=== PATIENT | female | born 1975 | race Caucasian/White ===

== ENCOUNTER 2020-11-11 11:29 | Emergency (ER) | payer BC ==
--- NOTE | 2020-11-11 13:10 | ERPHSYRPT ---
- History of Present Illness Time Seen by Provider: 11/11/20 12:10 Historian: patient Exam Limitations: no limitations Patient Subjective Stated Complaint: Pt states "This started last night [facility] tests and said I had a cyst on my ovary and to followup with dr. Schilling my ob. I called them and they said if I am in that much pain I should just go to the ED." Triage Nursing Assessment: Pt presented alert and oriented X 3, skin wpd pt ambulates with a hunched over shuffling gait. PT sittign with her knees pulled up to her chest. Pt tearful. Pt in no apparent respiratory distress. Physician History: Patient is a 45-year-old female presents to our emergency department for evaluation of right lower quadrant pain. Patient pain started yesterday evening. Patient followed up at an outside hospital. Patient had a complete work-up including CAT scan. Patient was advised that she had ovarian cyst. Patient was discharged home and advised to follow-up with her HUMAN RESOURCES BENEFITS SPECIALIST physician. Patient's pain is progressively worsening. Patient called her HUMAN RESOURCES BENEFITS SPECIALIST's office who advised her to come to our ED. Pain described as an ache that is well localized. No radiation. Pain worse with palpation at McBurney's point. Pain improved with rest. No associated diarrhea. No nausea or vomiting. No diaphoresis. No chest pain or shortness of breath. Patient is otherwise generally healthy. She voices no other complaints or concerns at this time. Timing/Duration: yesterday Activities at Onset: none Quality: aching Abdominal Pain Onset Location: RLQ Pain Radiation: no radiation Severity of Pain-Max: moderate Severity of Pain-Current: mild Modifying Factors: Improves With: movement Associated Symptoms: denies symptoms, No chest pain, No diarrhea, No nausea, No rash, No syncope, No vomiting Previous symptoms: no prior history Allergies/Adverse Reactions: acetaminophen [From Percocet] Allergy (Verified 11/11/20 12:11) itchy oxycodone [From Percocet] Allergy (Verified 11/11/20 12:11) itchy Home Medications: Atenolol 50 mg PO DAILY 11/11/20 [History] Hx Tetanus, Diphtheria Vaccination/Date Given: No Hx Influenza Vaccination/Date Given: Yes Hx Pneumococcal Vaccination/Date Given: No Immunizations Up to Date: Yes Travel Risk - International Travel Have you traveled outside of the country in past 3 weeks: No - Coronavirus Screening Are you exhibiting any of the following symptoms?: No Close contact with a COVID-19 positive Pt in past 14-21 Days: No - Vaccine Status Have you recieved a Covid-19 vaccination: No - Review of Systems Constitutional: No Symptoms, No Fever, No Chills Eyes: No Symptoms Ears, Nose, & Throat: No Symptoms Respiratory: No Symptoms, No Cough, No Dyspnea Cardiac: No Symptoms, No Chest Pain, No Edema, No Syncope Abdominal/Gastrointestinal: No Symptoms, No Abdominal Pain, No Nausea, No Vomiting, No Diarrhea Genitourinary Symptoms: No Symptoms, No Dysuria Musculoskeletal: No Symptoms, No Back Pain, No Neck Pain Skin: No Symptoms, No Rash Neurological: No Symptoms, No Dizziness, No Focal Weakness, No Sensory Changes Psychological: No Symptoms Endocrine: No Symptoms Hematologic/Lymphatic: No Symptoms Immunological/Allergic: No Symptoms All Other Systems: Reviewed and Negative - Past Medical History Pertinent Past Medical History: Yes Neurological History: Migraines Cardiac History: Hypertension, Other Respiratory History: No Pertinent History Endocrine Medical History: No Pertinent History Musculoskeletal History: Other Other Medical History: Pacemaker - Past Surgical History Past Surgical History: Yes Other Surgical History: hysterectomy. right shoulder surgery - Social History Smoking Status: Never smoker Exposure to second hand smoke: No Drug Use: none Patient Lives Alone: No - Female History Hx Last Menstrual Period: hysterectomy Hx Now: No - Nursing Vital Signs Nursing Vital Signs: Initial Vital Signs Temperature 97.2 F 11/11/20 12:04 Pulse Rate 62 11/11/20 12:04 Respiratory Rate 22 11/11/20 12:04 Blood Pressure 101/66 11/11/20 12:04 O2 Sat by Pulse Oximetry 100 11/11/20 12:04 Pain Scale Pain Intensity 9 - Physical Exam General Appearance: no apparent distress, alert Eye Exam: PERRL/EOMI, eyes nml inspection Ears, Nose, Throat Exam: normal ENT inspection, pharynx normal, moist mucous m embranes Neck Exam: normal inspection, non-tender, supple, full range of motion Respiratory Exam: normal breath sounds, lungs clear, No respiratory distress Cardiovascular Exam: regular rate/rhythm, normal heart sounds Gastrointestinal/Abdomen Exam: soft, No tenderness, No mass Back Exam: normal inspection, normal range of motion, No CVA tenderness, No vertebral tenderness Extremity Exam: normal inspection, normal range of motion, pelvis stable Neurologic Exam: alert, oriented x 3, cooperative, normal mood/affect, nml c erebellar function, sensation nml, No motor deficits Skin Exam: normal color, warm, dry Lymphatic Exam: adenopathy SpO2 Interpretation: normal SpO2: 100 O2 Delivery: Room Air - Course Nursing assessment & vital signs reviewed: Yes - CT Exams Abdomen/Pelvis CT Interpretation: Tele-radiologist Report (Appendix not visualized. Pelvic cyst visualized.) - Radiology Ultrasound Exam Pelvis Ultrasound: discussed w/radiologist (No torsion per log loader.) Ordered Tests: Medication Summary Discontinued Medications Generic Name Dose Route Start Last Admin Trade Name Freq PRN Reason Stop Dose Admin Fentanyl Citrate 25 mcg 11/11/20 13:14 11/11/20 14:02 Sublimaze 100 Mcg/2 Ml IV 11/11/20 13:15 25 mcg STAT ONE Administration Fentanyl Citrate Confirm 11/11/20 13:50 Sublimaze 100 Mcg/2 Ml Administered 11/11/20 13:51 Dose 100 mcg .ROUTE .STK-MED ONE Fentanyl Citrate Confirm 11/11/20 14:00 Sublimaze 100 Mcg/2 Ml Administered 11/11/20 14:01 Dose 100 mcg .ROUTE .STK-MED ONE Fentanyl Citrate 25 mcg 11/11/20 15:55 11/11/20 15:57 Sublimaze 100 Mcg/2 Ml IV 11/11/20 15:56 25 mcg STAT ONE Administration Fentanyl Citrate Confirm 11/11/20 15:56 Sublimaze 100 Mcg/2 Ml Administered 11/11/20 15:57 Dose 100 mcg .ROUTE .STK-MED ONE Sodium Chloride 1,000 mls @ 100 mls/hr 11/11/20 13:15 11/11/20 14:01 Sodium Chloride 0.9% 1000 Ml IV 12/11/20 13:14 100 mls/hr .Q10H DILCIA Administration Sodium Chloride Confirm 11/11/20 13:50 Sodium Chloride 0.9% 1000 Ml Administered 11/11/20 13:51 Dose 1,000 mls @ ud .ROUTE .STK-MED ONE Sodium Chloride Confirm 11/11/20 14:00 Sodium Chloride 0.9% 1000 Ml Administered 11/11/20 14:01 Dose 1,000 mls @ ud .ROUTE .STK-MED ONE Ondansetron HCl 4 mg 11/11/20 13:15 11/11/20 14:02 Zofran 4 Mg/2 Ml Vial IV 11/11/20 13:16 4 mg STAT ONE Administration Ondansetron HCl Confirm 11/11/20 13:49 Zofran 4 Mg/2 Ml Vial Administered 11/11/20 13:50 Dose 4 mg .ROUTE .STK-MED ONE Ondansetron HCl Confirm 11/11/20 13:59 Zofran 4 Mg/2 Ml Vial Administered 11/11/20 14:00 Dose 4 mg .ROUTE .STK-MED ONE Lab/Rad Data: Laboratory Result Diagrams 11/11/20 13:30 11/11/20 13:30 Laboratory Results 11/11/20 11/11/20 11/11/20 Range/Units 13:30 13:30 13:30 WBC 8.9 (4.0-10.5) K/mm3 RBC 4.12 (4.1-5.4) M/mm3 Hgb 12.7 (12.0-16.0) gm/dl Hct 38.2 (35-47) % MCV 92.7 (78-100) fl MCH 30.8 (26-32) pg MCHC 33.2 (32-36) g/dl RDW 13.0 (11.5-14.0) % Plt Count 133 L (150-450) K/mm3 MPV 11.5 H (7.5-11.0) fl Gran % 74.6 H (36.0-66.0) % Eos # (Auto) 0.08 (0-0.5) Absolute Lymphs (auto) 1.50 (1.0-4.6) Absolute Monos (auto) 0.68 (0.0-1.3) Lymphocytes % 16.8 L (24.0-44.0) % Monocytes % 7.6 (0.0-12.0) % Eosinophils % 0.9 (0.00-5.0) % Basophils % 0.1 (0.0-0.4) % Absolute Granulocytes 6.65 (1.4-6.9) Basophils # 0.01 (0-0.4) Sodium 137 (137-145) mmol/L Potassium 4.0 (3.5-5.1) mmol/L Chloride 106 (98-107) mmol/L Carbon Dioxide 24 (22-30) mmol/L Anion Gap 10.5 (5-15) MEQ/L BUN 11 (7-17) mg/dL Creatinine 0.67 (0.52-1.04) mg/dL Estimated GFR > 60.0 ML/MIN Glucose 87 (74-106) mg/dL Calcium 8.7 (8.4-10.2) mg/dL Total Bilirubin 0.30 (0.2-1.3) mg/dL AST 23 (14-36) U/L ALT 15 (0-35) U/L Alkaline Phosphatase 30 L (38-126) U/L Serum Total Protein 6.5 (6.3-8.2) g/dL Albumin 3.8 (3.5-5.0) g/dL Lipase 86 (23-300) U/L Urine Color STRAW (YELLOW) Urine Appearance CLEAR (CLEAR) Urine pH 7.0 (5-6) Ur Specific [place] 1.005 (1.005-1.025) Urine Protein NEGATIVE (Negative) Urine Ketones NEGATIVE (NEGATIVE) Urine Blood NEGATIVE (0-5) Sung/ul Urine Nitrite NEGATIVE (NEGATIVE) Urine Bilirubin NEGATIVE (NEGATIVE) Urine Urobilinogen NEGATIVE (0-1) mg/dL Ur Leukocyte Esterase NEGATIVE (NEGATIVE) Urine WBC (Auto) NONE (0-5) /HPF Urine RBC (Auto) NONE (0-2) /HPF U Epithel Cells (Auto) NONE (FEW) /HPF Urine Bacteria (Auto) NONE (NEGATIVE) /HPF Urine Culture Reflexed NO (NO) Urine Glucose NEGATIVE (NEGATIVE) mg/dL - Progress Progress: improved Progress Note: 11/11/20 15:00 CT abdomen pelvis did not visualize the appendix. Case discussed with on-call general surgeon Dr. Myers who does not feel patient symptomology is due to appendicitis. Case discussed with patient's HUMAN RESOURCES BENEFITS SPECIALIST Dr. schilling Who accepts transfer to [facility]. Plan of care discussed with patient. She agrees to transfer to [facility] for further evaluation and treatment. 11/11/20 15:03 Discussed with : Shun Will see patient in: office Counseled pt/family regarding: lab results, diagnosis, rad results - Departure Departure Disposition: Transfer Clinical Impression: Ovarian cyst, Abdominal pain Condition: Stable Critical Care Time: No Referrals: DANISH ZAMORA [Primary Care Provider] - Additional Instructions: Discharge/Care Plan KENNY VILLANUEVA was seen on 11/11/20 in the Emergency Room. The patient was counseled regarding Diagnosis,Lab results, Imaging studies, need for follow up and when to return to the Emergency Room. Prescriptions given: Discharge Note I have spoken with the patient and/or caregivers. I have explained the patient's condition, diagnosis and treatment plan based on the information available to me at this time. I have answered the patient's and/or caregiver's questions and addressed any concerns. The patient and/or caregivers have as good understanding of the patient's diagnosis, condition and treatment plan as can be expected at this point. The vital signs have been stable. The patient's condition is stable and appropriate for discharge from the emergency department. The patient will pursue further outpatient evaluation with the primary care physician or other designated or consulting physician as outlined in the discharge instructions. The patient and/or caregivers are agreeable to this plan of care and follow-up instructions have been explained in detail. The patient and/or caregivers have received these instruction. The patient/and or caregivers are aware that any significant change in condition or worsening of symptoms should prompt an immediate return to this or the closest emergency department or call 911.
[2020-11-11] MEDS ORDERED: SUBLIMAZE 100 MCG/2 ML IV ONE ×2 (13:14→15:55)
[2020-11-11] MEDS ORDERED: Sodium Chloride 0.9% 1000 ML 1,000 ML IV SCH (13:15)
[2020-11-11] MEDS ORDERED: Zofran 4 MG/2 ML VIAL IV ONE (13:15)
[2020-11-11 13:33] LABS: Absolute Neutrophil Ct (ANC) 6.65 (1.4-6.9); BASOPHIL % 0.1 % (0.0-0.4); Basophil (Absolute #) 0.01 (0-0.4); Eosinophil % 0.9 % (0.00-5.0); Eosinophil (Absolute #) 0.08 (0-0.5); Hematocrit 38.2 % (35-47); Hemoglobin 12.7 gm/dl (12.0-16.0); Lymphocytes % 16.8 % (24.0-44.0); Mean Cell Volume 92.7 fl (78-100); Mean Corpuscular Hemoglobin 30.8 pg (26-32); Mean Corpuscular Hgb Concent. 33.2 g/dl (32-36); Mean Platelet Volume 11.5 fl (7.5-11.0); Monocyte (Absolute #) 0.68 (0.0-1.3); Monocytes % 7.6 % (0.0-12.0); Neutrophil % 74.6 % (36.0-66.0); Platelet Count 133 K/mm3 (150-450); Red Blood Count 4.12 M/mm3 (4.1-5.4); White Blood Count 8.9 K/mm3 (4.0-10.5)
[2020-11-11 13:35] LABS: Appearance CLEAR (CLEAR); Bilirubin NEGATIVE (NEGATIVE); Blood NEGATIVE Ery/ul (0-5); Glucose NEGATIVE (NEGATIVE); Ketones NEGATIVE (NEGATIVE); Leukocyte Esterase NEGATIVE (NEGATIVE); Nitrite NEGATIVE (NEGATIVE); Protein,Urine Dip NEGATIVE (Negative); Specific Gravity 1.005 (1.005-1.025); Urobilinogen NEGATIVE mg/dL (0-1)
[2020-11-11 13:44] LABS: ALBUMIN 3.8 g/dL (3.5-5.0); ALKALINE PHOSPHATASE 30 U/L (38-126); ANION GAP 10.5 MEQ/L (5-15); BLOOD UREA NITROGEN 11 mg/dL (7-17); CHLORIDE 106 mmol/L (98-107); Calcium 8.7 mg/dL (8.4-10.2); Carbon Dioxide 24 mmol/L (22-30); Creatinine 1 0.67 mg/dL (0.52-1.04); EST GLOMERULAR FILTRATION RATE > 60.0 ML/MIN; Glucose 87 mg/dL (74-106); LIPASE 86 U/L (23-300); SGOT/AST 23 U/L (14-36); SGPT/ALT 15 U/L (0-35); SODIUM 137 mmol/L (137-145); Total Protein 6.5 g/dL (6.3-8.2)
[2020-11-11] MEDS ORDERED: Zofran 4 MG/2 ML VIAL ONE ×2 (13:49→13:59)
[2020-11-11] MEDS ORDERED: Sodium Chloride 0.9% 1000 ML 0 ML ONE (13:50)
[2020-11-11] MEDS ORDERED: SUBLIMAZE 100 MCG/2 ML ONE ×3 (13:50→15:56)
[2020-11-11] MEDS ORDERED: Sodium Chloride 0.9% 1000 ML 1,000 ML ONE (14:00)
[2020-11-11 14:02] VITALS: PULSE 60
--- NOTE | 2020-11-11 14:12 | XRAY ---
Indication: Right abdomen pain. Nausea. Multiple contiguous axial images obtained through the abdomen and pelvis using 80 cc Isovue 370 contrast. Comparison: None Lung bases dense minimal dependent atelectasis without infiltrate or effusion. Heart is not enlarged with pacer lead. Noncontrasted stomach and bowel loops appear nonobstructed. Appendix not seen. Hysterectomy reported. There are large bilateral adnexa cystic masses possibly ovarian in etiology if patient's hysterectomy is partial. Largest on the left measures 3.3 x 6.1 cm and the largest on the right measures 4.3 x 3.6 cm with tiny pelvic free fluid. No free air. Remaining liver, gallbladder, pancreas, spleen, adrenal glands, kidneys, ureters, bladder, and aorta appear unremarkable. No pathologic retroperitoneal lymphadenopathy. Osseous structures intact. Impression: Large bilateral pelvic cystic masses presumed ovarian in etiology with tiny free fluid. Pelvic sonogram may yield further information.
[2020-11-11 16:12] VITALS: BP 100/62
--- NOTE | 2020-11-11 16:51 | XRAY ---
Indication: Torsion. Partial hysterectomy. Two-dimensional transvaginal pelvic sonogram performed. Comparison: None Uterus surgically absent. Right ovary measures 5.0 x 3.9 x 5.6 cm and the left measures 3.2 x 3.6 x 3.7 cm. Normal color perfusion bilaterally. There are multiple bilateral pelvic cystic masses, largest on the left measuring 5.2 x 4.7 x 3.9 cm. Largest on the right measures 3.5 x 3.3 x 3.6 cm and demonstrates minimal debris in the dependent portion. Small bilateral adnexa free fluid. Impression: Partial hysterectomy. Multiple bilateral pelvic cysts presumed ovary in etiology as detailed. Malignancy not completely excluded. Small free fluid possibly from rupture/leaking cyst.
--- NOTE | 2020-11-12 08:48 | CONS ---
CONSULT DATE: 11/11/2020 HISTORY: This is a 45 year-old female. This patient is seen for Dr. Taylor who is teacher emotionally impaired for our group today. As I was here doing outpatient procedures Dr. Taylor asked me to see this patient with some right-sided abdominal pain going on for a couple of days deep towards the pelvic area. PAST MEDICAL HISTORY: Migraines, hypertension. PAST SURGICAL HISTORY: Dr. Rogers did a hysterectomy on her and left her ovaries behind. She has history of arthroscopic shoulder surgery. She had a pacemaker in the past. She had a pilonidal cyst in the past. MEDICATIONS: As listed per listed per the hospital emergency room admission. ALLERGIES: ACETAMINOPHEN. OXYCODONE. FAMILY HISTORY: Breast cancer. She had a grandmother who had some other sort of diffuse cancer of unknown type. REVIEW OF SYSTEMS: The patient wears glasses. She mainly complained of the right lower quadrant pain that has been going on for a couple of days. Apparently she was in the emergency room at [facility] and they released her. She came here today. She has a white count that is normal in the [address] scan that I personally reviewed with Dr. Arboleda. She does have constipation in right colon. There does not appear to be any diffuse inflammatory changes of the appendiceal structure. She does have some cysts on her right ovary. Again, two day history of this sharp pain with a normal white count. PHYSICAL EXAMINATION: Her vital signs are stable. GENERAL: No acute distress. HEENT: Sclera nonicteric. She is wearing glasses. NECK: No JVD. CHEST: Equal excursion, nonlabored breathing. CVS: Regular rate and rhythm. ABDOMEN: Soft. She has got some tenderness in more the deep pelvic area on the right. It seems to me it is more down towards the pelvis more than the actual McBurney's area. She is quite soft over the McBurney's on my exam. She does not seem to have peritoneal signs there. EXTREMITIES: No cyanosis. NEURO: Alert, moving extremities symmetrically. PSYCH: Appropriate mood and affect. IMPRESSION: The patient has some aches and pains, sharp type pain. A patient of Dr. Rogers who had a hysterectomy and still has her ovaries with some ovarian cysts. Whether she spilled some cyst fluid, had some irritation down in her deep pelvis or not is unclear. Two days' worth of sharp abdominal pain with normal white count does not grossly seem like acute appendicitis right at the moment. The patient agrees. She is not interested in laparoscopy today as this seems to be possibly more of ADMINISTRATIVE ASST in origin. Therefore if the emergency room doctor admits her he will talk to Dr. Rogers today. I do not think Dr. Rogers is coming down here to round on the patients on a regular basis that I recall. Either way I am seeing this patient for Dr. Moris Taylor. If things change and start running a high fever, white count increases and she needs intervention likely will be Dr. Taylor proceeding but at this point no acute general surgical intervention necessary at this time. She needs evaluation by her grinding machine operator portable regarding the enlarged cysts on the side where she is having her pain in this nontoxic patient with a normal white count after two days history of pain. Again, I was asked to see the patient by the emergency room physician for Dr. Taylor who was teacher emotionally impaired today.
[2020-11-14 07:12] VITALS: O2SAT 100
== END 2020-11-11 16:10 | disposition short-term general hospital (02) ==
LOC: ED 11:29
DX: N83.209 Unspecified ovarian cyst, unspecified side (principal); R10.31 Right lower quadrant pain
CPT/HCPCS: 36000; 36415; 74177; 76830; 80053; 81001; 83690; 85025; 96374; 96375; 96376; 99285; J2405; J3010